=== PATIENT | female | born 1975 | race Caucasian/White ===

== ENCOUNTER 2018-03-04 08:36 | Emergency (ER) | payer OTHER ==
[~2018-03-04] VITALS: Ht 167.6 cm; Wt 127.3 kg
[~2018-03-04 08:36] MED LIST: XODOL 5-300 TA1 EACH PO
[2018-03-04 08:44] VITALS: Ht 167.6 cm; Wt 127.3 kg
[2018-03-04] MEDS ORDERED: ZOLOFT50 MG PO (08:45)
[2018-03-04 09:10] LABS: APPEARANCE HAZY (CLEAR); BILIRUBIN NEGATIVE (NEGATIVE); COLOR YELLOW (YELLOW); GLUCOSE NEGATIVE (NEGATIVE); KETONE NEGATIVE (NEGATIVE); NITRITE NEGATIVE (NEGATIVE); PROTEIN NEGATIVE (NEGATIVE); SPECIFIC GRAVITY 1.015 (1.005-1.020); UROBILINOGEN NORMAL (NORMAL)
[2018-03-04 09:11] LABS: RED CELLS - URINE >50 /hpf (0-5); WHITE CELLS - URINE 0-5 /hpf (0-5)
[2018-03-04 09:12] LABS: BACTERIA MODERATE /hpf (NONE SEEN)
[2018-03-04 09:14] LABS: BASOPHILS 0.2 % (0-2); HEMATOCRIT 41.2 % (36.0-48.0); HEMOGLOBIN 13.7 g/dL (12-16); IMMATURE GRANULOCYTES 0.4 % (0-5); MCH 31.3 pg (26.0-34.0); MCHC 33.3 g/dL (31.0-37.0); MCV 94.1 fL (80.0-100.0); MEAN PLATELET VOLUME 12.5 fL (7.4-10.4); NEUTROPHILS 62.4 % (40-80); PLATELET COUNT 253 10x3/uL (130-400); RBC 4.38 10x6/uL (4.00-5.40); RDW 13.3 % (11.5-14.5); WBC 11.5 10x3/uL (4.8-10.8)
[2018-03-04 09:30] LABS: ALBUMIN 3.6 g/dL (3.4-5.0); ALKALINE PHOSPHATASE 88 U/L (46-116); ALT (SGPT) 26 U/L (10-68); AMYLASE - SERUM 48 U/L (25-115); BILIRUBIN - TOTAL 0.33 mg/dL (0.2-1.3); CALC OSMOLALITY 281 mosm/kg (275-300); CALCIUM 8.8 mg/dL (8.5-10.1); CHLORIDE - SERUM 105 mmol/L (98-107); CREATININE - SERUM 0.7 mg/dL (0.6-1.3); GLUCOSE 116 mg/dL (74-106); LIPASE 135 U/L (73-393); POTASSIUM - SERUM 4.5 mmol/L (3.5-5.1); PROTEIN - SERUM 7.8 g/dL (6.4-8.2); SODIUM 141 mmol/L (136-145); UREA NITROGEN 12 mg/dL (7-18); eGFR NON AFRICAN AMERICAN > 90 mL/min (90-120)
[2018-03-04] MEDS ORDERED: HYDROCODON-ACE1 EAC7 PO (13:05)
[2018-03-04 13:48] VITALS: BP 119/51
== END 2018-03-04 13:47 | disposition home or self-care (01) ==
LOC: D.ER 08:36
PROVIDERS: Emergency Medicine
DX: R10.9 Unspecified abdominal pain (principal); N20.1 Calculus of ureter

== ENCOUNTER 2018-03-05 09:16 | Day surgery (SDC) | payer OTHER ==
[~2018-03-05] VITALS: Ht 167.6 cm; Wt 127.0 kg
--- NOTE | ~2018-03-05 | OP ---
PATIENT NAME: MAGY SIMPSON MEDICAL RECORD: [id number] :77 [facility] DATE: SURGEON: MARYCARMEN PEACE MD DATE OF OPERATION: 03/05/2018 SURGEON: Marycarmen Peace MD ANESTHESIA: General anesthesia by Dr. Parker Batres. PREOPERATIVE DIAGNOSIS: Right 6 mm distal ureteral stone. PROCEDURE: Cystoscopy, right retrograde pyelogram, right ureteroscopy and stone extraction, right ureteral stent insertion 6-[place] x 24 cm with string attached. FINDINGS: Radiolucent right distal ureteral stone, 6 mm. Significant right hydroureteronephrosis. Reimplanted ureters bilaterally. SPECIMENS: Right ureteral stone. CLINICAL HISTORY: This is a 42-year-old female with no previous history of kidney stones. She had bilateral ureteral reimplantation at age 7 for reflux disease. Yesterday, she developed acute right flank pain radiating to the right lower quadrant. She had nausea and vomiting, but no fever. She came to the Emergency Room. A CT scan of the abdomen and pelvis showed a 6-mm stone lodged in the right distal ureter causing proximal hydronephrosis. She continued to have pain and she comes now to have the stone removed by ureteroscopy. She is not allergic to any medications and she was given [employer] professional to the OR. DESCRIPTION OF PROCEDURE: The patient was given induction of general anesthesia. She was placed into dorsal lithotomy position. She was prepped and draped. A 21-[place]icar[place] cystoscope with 30-degree lens was used for visualization. The ureteral orifices were easily seen. They are not stenotic in anyway. No bladder tumors were seen. There is some diffuse bladder inflammation suggestive of her recent cystitis. On fluoroscopy, we could not see any radiodensities suggesting the location of the kidney stone. I therefore performed bilateral retrograde pyelograms in case we had gotten the side wrong. On the left side, there was a slight degree of hydronephrosis due to some stenosis of the ureter as it passed through the bladder wall from the reimplantation. There was no constriction; however, as the contrast flowed up the left ureter very quickly. On the right side, there was even greater hydroureteronephrosis, but again we could not exactly define the location of the stone. I decided to proceed with ureteroscopy in order to determine for sure if there is a stone present or not. The Sensor wire was placed up to the right renal pelvis through the lumen of the open-ended ureteral catheter. The ureteral catheter was then removed, leaving the wire in place. We inserted the 18-[place]icar[place] x 4 cm ureteral dilation balloon. The balloon was dilated at 10 atmospheres for a few seconds in order to dilate the right ureteral orifice. We then removed the cystoscope as well as the dilation balloon. The guidewire was left in place. Following the wire with the rigid ureteroscope, we were able to come across the stone in the distal ureter. A 4-wire 0-tip basket was used to trap the stone and the stone was removed entirely. The stone was sent to pathology as a specimen. We then loaded the Sensor wire back into the cystoscope. Over the wire, we inserted the 6-[place]icar[place] x 24 cm ureteral stent. Once the stent was in correct position, the wire was withdrawn to allow the proximal end to coil. The distal end of the stent was OPERATIVE REPORT [id number] MAGY SIMPSON pushed entirely into the bladder using a pusher. The bladder was then emptied and the cystoscope was removed. The string on the distal end of the stent remains attached to the stent. The suprapubic area was shaved and cleaned and the string was taped to the suprapubic area. The excess length was cut off. The patient will go home today with a prescription for [place] 5/325, 20 tablets with no refills. She will come back to the office next Saturday to have the stent removed by pulling on the string. TRANSINT:[id number] Voice Confirmation ID: [id number] DOCUMENT ID: [id number] MARYCARMEN PEACE MD at 1446 CC: [id number] DICTATION DATE: 03/05/18 1232 SUPERVISOR METALIZING: 03/05/18 1321 [facility] [address] [place] [address]
[~2018-03-05 09:16] MED LIST changes: +HYDROCODON-ACE1 EAC7 PO; +ZOLOFT50 MG PO
[2018-03-05 10:00] VITALS: BP 149/63; Ht 167.6 cm; Wt 127.0 kg
[2018-03-05 10:31] LABS: MCHC 32.5 g/dL (31.0-37.0); MCV 95.2 fL (80.0-100.0); MEAN PLATELET VOLUME 12.5 fL (7.4-10.4); RBC 4.2 10x6/uL (4.00-5.40); RDW 13.5 % (11.5-14.5); WBC 9.1 10x3/uL (4.8-10.8)
[2018-03-14 11:20] LABS: CALCULI - CA OXALATE DIHYDRATE 10 % (()); CALCULI - CA OXALATE MONOHYDR 85 % (()); CALCULI - COLOR Brown (()); CALCULI - SIZE 5x4x2 mm (()); CALCULI - WEIGHT 45.8 mg (())
== END 2018-03-05 14:50 | disposition home or self-care (01) ==
LOC: D.OPS 09:16
PROVIDERS: Anesthesiology; Urology
DX: N13.2 Hydronephrosis with renal and ureteral calculous obstruction (principal); Z01.812 Encounter for preprocedural laboratory examination

== ENCOUNTER → 2018-05-07 08:31 | Outpatient (CLI) | payer OTHER ==
[~2018-05-07] VITALS: Ht 167.6 cm; Wt 122.9 kg
[2018-05-07 10:10] VITALS: Ht 167.6 cm; Wt 122.9 kg
== END | disposition home or self-care (01) ==
LOC: D.FANS 08:31
DX: E66.01 Morbid (severe) obesity due to excess calories (principal)

== ENCOUNTER → 2018-06-10 09:04 | Outpatient (CLI) | payer OTHER ==
[2018-05-07 10:10] VITALS: BMI 43.7
== END | disposition home or self-care (01) ==
LOC: D.RAD 09:04
DX: E66.01 Morbid (severe) obesity due to excess calories (principal)

== ENCOUNTER → 2018-07-15 08:13 | Outpatient (CLI) | payer OTHER ==
[2018-05-07 10:10] VITALS: BMI 43.7
== END | disposition home or self-care (01) ==
LOC: D.OPS 08:13
DX: E66.01 Morbid (severe) obesity due to excess calories (principal); Z01.812 Encounter for preprocedural laboratory examination

== ENCOUNTER 2018-07-16 05:55 | Day surgery (SDC) | payer OTHER ==
[~2018-07-16] VITALS: Ht 167.6 cm; Wt 129.1 kg
[2018-07-16 06:21] VITALS: BP 111/66; Ht 167.6 cm; Wt 129.1 kg
[2018-07-16 07:13] LABS: BASOPHILS 0.2 % (0-2); HEMATOCRIT 38.2 % (36.0-48.0); HEMOGLOBIN 12.6 g/dL (12-16); IMMATURE GRANULOCYTES 0.1 % (0-5); LYMPHOCYTES 43.6 % (15-50); MCH 31.7 pg (26.0-34.0); MEAN PLATELET VOLUME 12.6 fL (7.4-10.4); MONOCYTES 6.8 % (2-11); NEUTROPHILS 47.3 % (40-80); PLATELET COUNT 236 10x3/uL (130-400); RBC 3.98 10x6/uL (4.00-5.40); WBC 8.1 10x3/uL (4.8-10.8)
[2018-07-16 07:24] LABS: CALC OSMOLALITY 283 mosm/kg (275-300); CALCIUM 8.5 mg/dL (8.5-10.1); CARBON DIOXIDE 21.8 mmol/L (21.0-32.0); CHLORIDE - SERUM 108 mmol/L (98-107); CREATININE - SERUM 0.7 mg/dL (0.6-1.3); GLUCOSE 109 mg/dL (74-106); POTASSIUM - SERUM 3.7 mmol/L (3.5-5.1); SODIUM 142 mmol/L (136-145); UREA NITROGEN 13 mg/dL (7-18); eGFR NON AFRICAN AMERICAN > 90 mL/min (90-120)
== END 2018-07-16 09:31 | disposition home or self-care (01) ==
LOC: D.OPS 05:55
PROVIDERS: Anesthesiology
DX: K29.80 Duodenitis without bleeding (principal); K44.9 Diaphragmatic hernia without obstruction or gangrene; K29.50 Unspecified chronic gastritis without bleeding; K22.10 Ulcer of esophagus without bleeding; E66.01 Morbid (severe) obesity due to excess calories; Z68.42 Body mass index [BMI] 45.0-49.9, adult; M19.90 Unspecified osteoarthritis, unspecified site; Z01.812 Encounter for preprocedural laboratory examination

== ENCOUNTER → 2018-08-15 12:26 | Outpatient (CLI) | payer OTHER ==
[2018-07-16 06:21] VITALS: BMI 45.9
== END | disposition home or self-care (01) ==
LOC: D.RT 12:26
DX: Z87.891 Personal history of nicotine dependence (principal)

== ENCOUNTER 2019-09-23 08:00 | Outpatient (CLI) | payer OTHER ==
[2018-07-16 06:21] VITALS: BMI 45.9
== END 2019-09-23 23:59 | disposition home or self-care (01) ==
LOC: D.MAMMO 08:00
PROVIDERS: ATTEND Family Medicine
DX: Z12.31 Encounter for screening mammogram for malignant neoplasm of breast (principal)

== ENCOUNTER 2019-10-02 16:28 | Emergency (ER) | payer OTHER ==
[2019-10-02 16:34] VITALS: Ht 167.6 cm
[2019-10-02] MEDS ORDERED: ULTRAM50 MG PO ×2 (19:13→19:17)
[2019-10-02 19:48] VITALS: BP 115/54
== END 2019-10-02 19:48 | disposition home or self-care (01) ==
LOC: D.ER 16:28
DX: M79.661 Pain in right lower leg (principal); J45.909 Unspecified asthma, uncomplicated

== ENCOUNTER → 2020-12-21 08:43 | Outpatient (CLI) | payer OTHER ==
[~2020-12-21 08:43] MED LIST changes: +ULTRAM50 MG PO
== END | disposition home or self-care (01) ==
LOC: D.US 08:43
PROVIDERS: ATTEND Surgery
DX: R59.0 Localized enlarged lymph nodes (principal); I87.2 Venous insufficiency (chronic) (peripheral)